=== PATIENT | male | born 1970 | race Caucasian/White ===

== ENCOUNTER 2019-06-15 09:36 | Emergency (ER) | payer MEDICAID ==
[~2019-06-15] VITALS: Ht 177.8 cm; Wt 136.1 kg
[2019-06-15 09:44] VITALS: Ht 177.8 cm; Wt 136.1 kg
[2019-06-15 10:30] VITALS: BP 140/70
== END 2019-06-15 10:32 | disposition home or self-care (01) ==
LOC: ED 09:36
DX: M54.5 Low back pain (principal); E78.5 Hyperlipidemia, unspecified